=== PATIENT | female | born 1970 | race Two or more races ===

== ENCOUNTER 2016-08-18 11:44 | Emergency (ER) | payer OTHER ==
[2016-08-18 11:52] VITALS: RESP 16
--- NOTE | 2016-08-18 12:29 | EDPHY ---
H & P Time Seen by Provider: 08/18/16 11:55 HPI/ROS: CHIEF COMPLAINT: abdominal pain HISTORY OF PRESENT ILLNESS: Patient is a 45-year-old female who presents emergency department with left lower quadrant abdominal pain. Her pain started 1 week ago. She described it initially as diffuse. However, over the past 3 days it has moved to the left lower quadrant. It radiates to her back. Also radiates down her entire upper left leg. She has had nausea but no vomiting. Mild nonbloody diarrhea. No fevers or chills. No dysuria or frequency. REVIEW OF SYSTEMS: My complete review of systems is negative except as mentioned in the HPI. Past Medical/Surgical History: Negative Past surgical history: Includes cholecystectomy, appendectomy Social history: Patient does not smoke Smoking Status: Never smoked Physical Exam: 37.2, 103/68, 77, 16, 99% on room air GENERAL: Well-appearing, in no acute distress, alert. HEENT: Eyes normal to inspection, normal pharynx, no signs of dehydration. NECK: No thyromegaly, no lymphadenopathy, supple. RESPIRATORY: Clear to auscultation bilaterally, no rales, rhonchi or wheezing. CVS: Regular rate and rhythm, no rubs, murmurs, or gallops. ABDOMEN: Soft, nondistended, no organomegaly. Mild left lower quadrant tenderness to palpation. No rebound or guarding. BACK: Normal to inspection, no CVA tenderness. SKIN: Normal color, no rash, warm, dry. No pallor. EXTREMITIES: No pedal edema, no calf tenderness, no Homans sign or cords, no joint swelling. NEURO/PSYCH: Alert and oriented x3, normal mood and affect, normal motor sensory exam. Constitutional: Initial Vital Signs Temperature (C) 36.8 C 08/18/16 11:46 Heart Rate 91 08/18/16 11:46 Respiratory Rate 16 08/18/16 11:46 Blood Pressure 143/68 H 08/18/16 11:46 O2 Sat (%) 96 08/18/16 11:46 O2 Delivery Mode Room Air Allergies/Adverse Reactions: acetaminophen Allergy (Verified 08/18/16 11:48) ibuprofen Allergy (Verified 08/18/16 11:48) Home Medications: Medication Instructions Recorded Famotidine [Pepcid 20 MG (*)] 20 mg PO BID #10 tab 08/18/16 Ondansetron Odt [Zofran Odt 4 mg 4 mg PO Q4PRN PRN #7 tab 08/18/16 (*)] oxyCODONE IR [Oxycodone Ir (*)] 5 mg PO Q4 #9 tab 08/18/16 Medical Decision Making ED Course/Re-evaluation: 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 In the emergency department I discussed possible etiologies with the patient. I answered all her questions. Laboratory studies, CT scan was ordered. Patient was noted to have mildly elevated white count of 10. Her sodium is minimally elevated at 45. Her chemistry panel is otherwise unremarkable. Patient's urine studies were negative. CT of the abdomen pelvis: Please refer the dictated report by the radiologist. I discussed case with Dr. Morris. No noted abnormality. No kidney stone. 1350: I discussed the results with the patient. She is now having band like abdominal pain. Mild epigastric TTP. No rebound or guarding. Pt given oxyIR and gi cocktail. Patient was rechecked after receiving the medications. She felt much better after the GI cocktail. Repeat examination her abdomen was soft, nontender nondistended. I discussed the results with the patient. I answered all her questions. On repeat examination she had minimal left lower quadrant tenderness palpation. No rebound or guarding. I gave patient warnings prior to leaving. She will return with worsening symptoms. Differential Diagnosis: My differential includes but is not limited to diverticulitis, diverticulosis, small-bowel obstruction, perforation, colitis, kidney stone, urinary tract infection, pyelonephritis - Data Points Laboratory Results: Laboratory Results 08/18/16 12:25 08/18/16 12:25 08/18/16 08/18/16 13:20 12:25 WBC 10.63 H 10^3/uL (3.80-9.50) RBC 5.42 H 10^6/uL (4.18-5.33) Hgb 14.9 g/dL (12.6-16.3) Hct 45.4 % (38.0-47.0) MCV 83.8 fL (81.5-99.8) MCH 27.5 L pg (27.9-34.1) MCHC 32.8 g/dL (32.4-36.7) RDW 13.6 % (11.5-15.2) Plt Count 313 10^3/uL (150-400) MPV 11.4 fL (8.7-11.7) Neut % (Auto) 70.2 % (39.3-74.2) Lymph % (Auto) 23.1 % (15.0-45.0) [place] % (Auto) 5.4 % (4.5-13.0) Eos % (Auto) 0.5 L % (0.6-7.6) Baso % (Auto) 0.5 % (0.3-1.7) Nucleat RBC Rel Count 0.0 % (0.0-0.2) Absolute Neuts (auto) 7.47 H 10^3/uL (1.70-6.50) Absolute Lymphs (auto) 2.46 10^3/uL (1.00-3.00) Absolute Monos (auto) 0.57 10^3/uL (0.30-0.80) Absolute Eos (auto) 0.05 10^3/uL (0.03-0.40) Absolute Basos (auto) 0.05 10^3/uL (0.02-0.10) Absolute Nucleated RBC 0.00 10^3/uL (0-0.01) Immature Gran % 0.3 % (0.0-1.1) Immature Gran # 0.03 10^3/uL (0.00-0.10) Sodium 145 H mEq/L (134-144) Potassium 4.6 mEq/L (3.5-5.2) Chloride 109 mEq/L (97-110) Carbon Dioxide 25 mEq/l (22-31) Anion Gap 11 mEq/L (8-16) BUN 6 L mg/dL (7-23) Creatinine 0.8 mg/dL (0.6-1.0) Estimated GFR > 60 Glucose 92 mg/dL (70-100) Calcium 9.7 mg/dL (8.5-10.4) Total Bilirubin 0.9 mg/dL (0.1-1.4) Conjugated Bilirubin 0.3 mg/dL (0.0-0.5) Unconjugated Bilirubin 0.6 mg/dL (0.0-1.1) AST 25 IU/L (14-46) ALT 31 IU/L (9-52) Alkaline Phosphatase 81 IU/L (38-126) Total Protein 7.8 g/dL (6.3-8.2) Albumin 4.2 g/dL (3.5-5.0) Lipase 76.0 IU/L (23-300) Beta HCG, Qual NEGATIVE Urine Color YELLOW Urine Appearance CLEAR Urine pH 5.0 (5.0-7.5) Ur Specific [place] 1.011 (1.002-1.030) Urine Protein NEGATIVE (NEGATIVE) Urine Ketones NEGATIVE (NEGATIVE) Urine Blood NEGATIVE (NEGATIVE) Urine Nitrate NEGATIVE (NEGATIVE) Urine Bilirubin NEGATIVE (NEGATIVE) Urine Urobilinogen NEGATIVE EU (0.2-1.0) Ur Leukocyte Esterase NEGATIVE (NEGATIVE) Ur Culture Indicated? NOT INDICATED (NI) Urine Glucose NEGATIVE (NEGATIVE) Medications Given: Discontinued Medications Sodium Chloride (Ns) 1,000 mls @ 0 mls/hr IV ONCE ONE PRN Reason: Wide Open Stop: 08/18/16 12:32 Last Admin: 08/18/16 12:52 Dose: 1,000 mls Miscellaneous Medication (Gi Cocktail) 55 ml PO EDNOW ONE Stop: 08/18/16 13:59 Last Admin: 08/18/16 14:04 Dose: 55 ml Morphine Sulfate (Morphine) 4 mg IVP EDNOW ONE Stop: 08/18/16 12:33 Last Admin: 08/18/16 12:52 Dose: 2 mg Ondansetron HCl (Zofran) 4 mg IVP EDNOW ONE Stop: 08/18/16 12:32 Last Admin: 08/18/16 12:52 Dose: 4 mg Oxycodone HCl (Oxycodone Ir) 10 mg PO EDNOW ONE Stop: 08/18/16 13:58 Last Admin: 08/18/16 14:04 Dose: 10 mg Departure - Departure Disposition: Home, Routine, Self-Care Clinical Impression: Abdominal pain Qualifiers: Abdominal location: left lower quadrant Qualifier Code: (R10.32) Left lower quadrant pain Condition: Good Instructions: Abdominal Pain (ED) Additional Instructions: Your CT scan was unremarkable. Return with increasing pain, fever, vomiting or any other concerns. [facility]. Regrese si aumenta dolor, fiebre, vomitos o cualquier otra preocupacion. Referrals: [facility] [Outside] - 1-2 days without fail Prescriptions: oxyCODONE IR [Oxycodone Ir (*)] 5 mg PO Q4 #9 tab Famotidine [Pepcid 20 MG (*)] 20 mg PO BID #10 tab Ondansetron Odt [Zofran Odt 4 mg (*)] 4 mg PO Q4PRN PRN #7 tab PRN Reason: For Nausea & Vomiting Print Language: Faroese
[2016-08-18] MEDS ORDERED: NS 1,000 ML IV ONE (12:31)
[2016-08-18] MEDS ORDERED: ONDANSETRON 4 MG/2 ML VIAL IVP ONE (12:31)
[2016-08-18 12:41] LABS: % IMMATURE GRANULYOCYTES 0.3 % (0.0-1.1); ABSOLUTE IMMATURE GRANULOCYTES 0.03 10^3/uL (0.00-0.10); ADD DIFF? NO; ADD MORPH? NO; ADD SCAN? NO; ATYPICAL LYMPHOCYTE FLAG 0 (0-99); FRAGMENT RBC FLAG 0 (0-99); HEMATOCRIT 45.4 % (38.0-47.0); HEMOGLOBIN 14.9 g/dL (12.6-16.3); LEFT SHIFT FLG 0 (0-99); LIPEMIA HEMOLYSIS FLAG 80 (0-99); MEAN CELL HEMOGLOBIN 27.5 pg (27.9-34.1); MEAN CELL HEMOGLOBIN CONCENTR. 32.8 g/dL (32.4-36.7); MEAN CELL VOLUME 83.8 fL (81.5-99.8); MEAN PLATELET VOLUME 11.4 fL (8.7-11.7); PLATELET CLUMPS FLAG 20 (0-99); PLATELET COUNT 313 10^3/uL (150-400); RED BLOOD CELL COUNT 5.42 10^6/uL (4.18-5.33); RED CELL DISTRIBUTION WIDTH 13.6 % (11.5-15.2)
[2016-08-18 12:56] LABS: ALANINE AMINOTRANSFERASE 31 IU/L (9-52); ALBUMIN 4.2 g/dL (3.5-5.0); ALKALINE PHOSPHATASE 81 IU/L (38-126); ANION GAP 11 mEq/L (8-16); ASPARTATE AMINOTRANSFERASE 25 IU/L (14-46); BILIRUBIN,TOTAL 0.9 mg/dL (0.1-1.4); BILIRUBIN-CONJUGATED 0.3 mg/dL (0.0-0.5); BILIRUBIN-UNCONJUGATED 0.6 mg/dL (0.0-1.1); CALCIUM 9.7 mg/dL (8.5-10.4); CARBON DIOXIDE 25 mEq/l (22-31); CHLORIDE 109 mEq/L (97-110); CREATININE 0.8 mg/dL (0.6-1.0); GLOMERULAR FILTRATION RATE > 60; GLUCOSE 92 mg/dL (70-100); POTASSIUM 4.6 mEq/L (3.5-5.2); SODIUM 145 mEq/L (134-144); TOTAL PROTEIN 7.8 g/dL (6.3-8.2)
[2016-08-18 13:36] LABS: COLOR YELLOW; LEUKOCYTE ESTERASE,URINE NEGATIVE (NEGATIVE); NITRITE,URINE NEGATIVE (NEGATIVE)
--- NOTE | 2016-08-18 13:43 | CT ---
CT Scan of the Urinary Tract (Abdomen and Pelvis Without Contrast) Clinical Indications: Left-sided flank pain. Technique: Multidetector helical CT imaging was performed from the kidneys to the urinary bladder wi thout contrast. Findings: Abdomen: No calcifications are found within the kidneys, ureters and bladder. No evidence of hydron ephrosis. Perirenal fat is not edematous. Visualized bowel loops appear unremarkable. No evidence of diverticulosis. Pelvis: No pelvic masses are seen. There is no free fluid seen. Mild diffuse enlargement of the brandy celia is present with a probable serosal fibroid on the right side of the lower uterine segment. Impression: Negative non-contrast CT examination of the urinary system. Results called to Dr. Reina Jung at the time of the interpretation. Attention: This CT examination is specifically designed to evaluate patients who are clinically susp ected of having acute obstructive uropathy. This examination does not use radiographic contrast, and as such, provides only a limited evaluation of the abdomen, pelvis and retroperitoneum. If there i s further clinical suspicion for pathological conditions other than obstructive uropathy, a complete CT evaluation of the abdomen and pelvis utilizing intravenous, oral, and rectal contrast should be co nsidered.
[2016-08-18] MEDS ORDERED: oxyCODONE IR 5 MG TAB PO ONE (13:57)
[2016-08-18] MEDS ORDERED: MAALOX/LIDO/HYOSC GI COCKTAIL 55 ML BOTTLE PO ONE (13:58)
[2016-08-18 15:28] VITALS: BP 110/68; PULSE 79; TEMP 98.4; O2SAT 93
== END 2016-08-18 15:04 | disposition home or self-care (01) ==
DX: R10.32 Left lower quadrant pain (principal)
CPT/HCPCS: 96374; J2405